=== PATIENT | female | born 1995 | race Hispanic/Latino ===

== ENCOUNTER 2016-11-01 13:07 | Emergency (ER) | payer OTHER ==
[~2016-11-01] VITALS: Ht 162.6 cm; Wt 53.5 kg
--- NOTE | 2016-11-01 14:53 | ED GI/GU/ABDOMINAL COMPLAINT ---
History of Present Illness General Chief Complaint: Female Urogenital Problems Stated Complaint: PELVIC PAIN 9 WEEKS Source: patient Exam Limitations: no limitations Vital Signs & Intake/Output Vital Signs & Intake/Output Vital Signs Date Time Temp Pulse Resp B/P Pulse O2 O2 Flow FiO2 Ox Delivery Rate 11/01 1810 97.2 72 17 115/68 96 Room Air 11/01 1544 99 Room Air 11/01 1324 97.6 79 18 109/73 95 Room Air ED Intake and Output 11/02 0000 11/01 1200 Intake Total 1000 Output Total Balance 1000 Intake, IV 1000 Patient 118 lb Weight Allergies Coded Allergies: No Known Allergies (11/01/16) Triage Note: C/O LOWER ABDOMINAL PAIN YESTERDAY, LASTING THROUGH NIGHT, PAIN BACK TODAY, DESCRIBED CRAMP-LIKE. ALSO C/O VOMITING SINCE YESTERDAY. DENIES VAGINAL BLEEDING. 9 WEEK . Triage Nurses Notes Reviewed? yes ? Y Is pt currently ? No HPI: 21-year-old female arrived to triage to room 2. Evaluation of lower abdominal pain that started last night. She reports she is 9 weeks confirmed by ultrasound through her SOFTWARE CONFIGURATION ENGINEER in [place]. She started with sharp stabbing pain super pubic area last night which continued through the night. She reports she could not sleep. She had some nausea and vomited 1. No diarrhea. No fever or chills. Last bowel movement was yesterday and the last time she ate was this morning. She denies any urinary symptoms. She is moving down to this area and would like an SOFTWARE CONFIGURATION ENGINEER. She reports she does not know if this is normal abdominal pain. She looks nontoxic, well-appearing and playing on her phone in the room. She reports this is her first . She denies any vaginal bleeding or discharge. (CHRIS PATEL APRN) Past History Travel History Traveled to [place] past 21 day No Medical History Any Pertinent Medical History? none Neurological: NONE EENT: NONE Cardiovascular: NONE Respiratory: NONE Gastrointestinal: NONE Hepatic: NONE Renal: NONE Musculoskeletal: NONE Psychiatric: NONE Endocrine: NONE Surgical History Surgical History: none Psychosocial History What is your primary language Mauritian Tobacco Use: Never used ETOH Use: denies use Family History Hx Contributory? No (CHRIS PATEL APRN) Review of Systems Review of Systems Constitutional: Reports: no symptoms. EENTM: Reports: no symptoms. Respiratory: Reports: no symptoms. Cardiovascular: Reports: no symptoms. GI: Reports: abdominal pain. Genitourinary: Reports: no symptoms. Musculoskeletal: Reports: no symptoms. Skin: Reports: no symptoms. Neurological/Psychological: Reports: no symptoms. Hematologic/Endocrine: Reports: no symptoms. Immunologic/Allergic: Reports: no symptoms. All Other Systems: Reviewed and Negative (CHRIS PATEL APRN) Physical Exam Physical Exam General Appearance: well developed/nourished, no apparent distress, alert, awake , comfortable Head: atraumatic, normal appearance Eyes: Bilateral: normal appearance, PERRL, EOMI. Ears, Nose, Throat, Mouth: hearing grossly normal, moist mucous membrane Neck: normal inspection, supple, full range of motion Respiratory: normal breath sounds, chest non-tender, no respiratory distress Cardiovascular: regular rate/rhythm Peripheral Pulses: 2+ radial (R), 2+ radial (L) Gastrointestinal: normal bowel sounds, soft, non-tender Back: normal inspection, normal range of motion Extremities: normal range of motion, evidence of injury Neurologic/Psych: no motor/sensory deficits, awake, alert, oriented x 3, normal gait, normal mood/affect Skin: intact, normal color, warm/dry Core Measures ACS in differential dx? No Severe Sepsis Present: No Septic Shock Present: No (CHRIS PATEL APRN) Progress Differential Diagnosis: ectopic , intrauterine , kidney stone, UTI/pyelo Plan of Care: Orders Procedure Date/time Status Add-on Test (ER Only) 11/01 1645 Active CULTURE,URINE 11/01 1519 Active URINALYSIS 11/01 1452 Complete HUMAN BETA HCG TITRE 11/01 1452 Complete COMPREHENSIVE METABOLIC PANEL 11/01 1452 Complete CBC WITHOUT DIFFERENTIAL 11/01 1452 Complete Laboratory Tests 11/01/16 1519: Urinalysis MANY H, Urine Color YEL, Urine Clarity HAZY H, Urine pH 8.5 H, Ur Specific [place] 1.020, Urine Protein NEG, Urine Ketones NEG, Urine Nitrite NEG, Urine Bilirubin NEG, Urine Urobilinogen 1.0, Ur Leukocyte Esterase SMALL H, Ur Microscopic SEDIMENT EXAMINED, Urine WBC RARE, Ur Epithelial Cells MANY H, Urine Bacteria MANY H, Urine Hemoglobin NEG, Urine Glucose NEG 11/01/16 1515: Anion Gap 7, Estimated GFR > 60, BUN/Creatinine Ratio 11.7, Glucose 92, Calcium 9.1, Total Bilirubin 0.8, AST 21, ALT 35, Alkaline Phosphatase 33, Total Protein 6.4, Albumin 3.5, Globulin 2.9, Albumin/Globulin Ratio 1.2, Beta HCG, Quant 375378.0, CBC w Diff NO MAN DIFF REQ, RBC 4.11 L, MCV 89.2, MCH 30.5, RDW 12.9, MPV 8.3, Gran % 48.7, Lymphocytes % 33.7, Monocytes % 14.1 H, Eosinophils % 3.2 , Basophils % 0.3, Absolute Granulocytes 2.0, Absolute Lymphocytes 1.4, Absolute Monocytes 0.6, Absolute Eosinophils 0.1, Absolute Basophils 0, PUBS MCHC 34.2 Microbiology 11/01 1519 URINE ROUT: Urine Culture - RECD Initial ED EKG: none Comments: PATIENT: CARO FLORENTINO PRESENT AGE: 21 PATIENT ACCOUNT NO: [id number] : 96 LOCATION: [facility] ORDERING PHYSICIAN: CHRIS PATEL APRN SERVICE DATE: 11/01/16 EXAM TYPE: US - US- VIABILITY EXAMINATION: Ultrasound of , less than 14 weeks. INDICATION: Lower abdominal pain. 9 weeks .. TECHNIQUE: Real-time ultrasound of was performed with a transabdominal and transvaginal transducer accessing grayscale appearance and color Doppler flow. COMPARISON: None FINDINGS: The LMP is 08/31/2016 corresponding to a gestational age of 8 weeks 6 days. The estimated gestational age by ultrasound is 9 weeks 5 days for an estimated delivery date of 06/07/2017. Multiple sonographic images of the pelvis demonstrates a single live intrauterine . heart rate of 156 beats per minute is detected. The cervix measures 2.5 cm. The left ovary is not visualized. The right ovary measures 4.0 x 2.3 x 2.2 cm and is morphologically unremarkable. Code Doppler interrogation of the right ovary demonstrates normal arterial and venous waveforms. anatomy is difficult to evaluate secondary to small size of the fetus. The crown-rump length is 2.64 cm ( 9 weeks 5 days). IMPRESSION: Single live intrauterine gestation. Mean age of 9 weeks and 5 days, with expected date of delivery 06/01/2017. The age by ultrasound is within one week of the expected due date based on the LMP. The left ovary is not visualized. The right ovary is within normal limits. Secondary to the early stage of , anatomy is difficult to evaluate and further measurements for a more comprehensive age estimate cannot be taken. DICTATED BY: DEMARCUS JAMISON MD DATE/TIME DICTATED:11/01/161738 SCIENCE TEACHER:NENO DATE/TIME TRANSCRIBED:11/01/161738 CONFIDENTIAL, DO NOT COPY WITHOUT APPROPRIATE AUTHORIZATION. <Electronically signed in Other Vendor System> SIGNED BY: DEMARCUS JAMISON MD 11/01/161751 6:24 PM explained blood work and ultrasound results to patient. She feels better at this time with no nausea vomiting and no abdominal pain. She will be discharged home to follow up with SOFTWARE CONFIGURATION ENGINEER in our area. Case discussed with Dr. Bruno. (CHRIS PATEL APRN) Departure Departure Time of Disposition: 1819 Disposition: HOME OR SELF CARE Condition: Stable Clinical Impression Primary Impression: at early stage Secondary Impressions: Abdominal pain Qualifiers: Abdominal location: lower abdomen, unspecified Qualified Code: R10.30 - Lower abdominal pain, unspecified Referrals: RUTHIE WELLER DO Additional Instructions: Please follow up with Dr. Weller this week. Return to the emergency department for any worsening or concerning symptoms including vaginal bleeding with abdominal pain. Departure Forms: Customer Survey General Discharge Information (CHRIS PATEL APRN) PA/ADJUNCT WRITING INSTRUCTOR Co-Sign Statement Statement: ED Attending supervision documentation- [X] I saw and evaluated the patient. I have also reviewed all the pertinent lab results and diagnostic results. I agree with the findings and the plan of care as documented in the PA's/ADJUNCT WRITING INSTRUCTOR's documentation. [X] I have reviewed the ED Record and agree with the PA's/ADJUNCT WRITING INSTRUCTOR's documentation. [] Additions or exceptions (if any) to the PAs/ADJUNCT WRITING INSTRUCTOR's note and plan are summarized below: [] (СЕРГЕЙ MOSELEY,JONATHAN)
[2016-11-01 15:39] LABS: ABSOLUTE BASOPHIL COUNT 0 /CUMM (0.0-0.2); ABSOLUTE EOSINOPHIL COUNT 0.1 /CUMM (0.0-0.7); ABSOLUTE LYMPH COUNT 1.4 /CUMM (1.2-3.4); ABSOLUTE MONOCYTE COUNT 0.6 /CUMM (0.10-0.60); BASOPHIL % 0.3 % (0.0-2.0); EOSINOPHIL % 3.2 % (0-5); GRANULOCYTE % 48.7 % (42.2-75.2); HEMATOCRIT 36.7 % (37-47); MEAN CORPUSCULAR HGB 30.5 PG (27.0-31.0); MEAN CORPUSCULAR HGB CONC 34.2 G/DL (33.0-37.0); MEAN CORPUSCULAR VOLUME 89.2 FL (81.0-99.0); MEAN PLATELET VOLUME 8.3 FL (7.4-10.4); PLATELET COUNT 216 /CUMM (130-400); RBC DISTRIBUTION WIDTH 12.9 % (11.5-14.5); RED BLOOD CELL CT 4.11 /CUMM (4.20-5.40); WHITE BLOOD CELL COUNT 4.1 /CUMM (4.8-10.8)
--- NOTE | 2016-11-01 17:52 | ULTRASOUND REPORT ---
EXAMINATION: Ultrasound of , less than 14 weeks. INDICATION: Lower abdominal pain. 9 weeks .. TECHNIQUE: Real-time ultrasound of was performed with a transabdominal and transvaginal transducer accessing grayscale appearance and color Doppler flow. COMPARISON: None FINDINGS: The LMP is 08/31/2016 corresponding to a gestational age of 8 weeks 6 days. The estimated gestational age by ultrasound is 9 weeks 5 days for an estimated delivery date of 06/07/2017. Multiple sonographic images of the pelvis demonstrates a single live intrauterine . heart rate of 156 beats per minute is detected. The cervix measures 2.5 cm. The left ovary is not visualized. The right ovary measures 4.0 x 2.3 x 2.2 cm and is morphologically unremarkable. Code Doppler interrogation of the right ovary demonstrates normal arterial and venous waveforms. anatomy is difficult to evaluate secondary to small size of the fetus. The crown-rump length is 2.64 cm ( 9 weeks 5 days). IMPRESSION: Single live intrauterine gestation. Mean age of 9 weeks and 5 days, with expected date of delivery 06/01/2017. The age by ultrasound is within one week of the expected due date based on the LMP. The left ovary is not visualized. The right ovary is within normal limits. Secondary to the early stage of , anatomy is difficult to evaluate and further measurements for a more comprehensive age estimate cannot be taken.
[2016-11-01 18:10] VITALS: BP 115/68
== END 2016-11-01 18:32 ==
LOC: ERH 13:07
PROVIDERS: Nurse Practitioner Family
DX: O26.91 Pregnancy related conditions, unspecified, first trimester (principal); R10.30 Lower abdominal pain, unspecified; Z3A.09 9 weeks gestation of pregnancy
CPT/HCPCS: 81001; 87086

== ENCOUNTER 2018-03-03 16:11 | Emergency (ER) | payer OTHER ==
[~2018-03-03] VITALS: Ht 162.6 cm; Wt 47.6 kg
[~2018-03-03 16:11] MED LIST: FERRALET 90 TA1 EACH PO; FERROUS SULFAT325 M3 PO; IBUPROFEN800 M1 PO; PERCOCET 5-3251 EACH PO; PRENATAL TABLE1 EAC2 PO; VITAFOL-ONE CA1 EACH PO
[2018-03-03 16:16] VITALS: BP 120/74
[2018-03-03] MEDS ORDERED: MAGIC MOUTH PO (16:21)
[2018-03-03] MEDS ORDERED: LIDO PO (16:21)
--- NOTE | 2018-03-03 16:22 | ED GENERAL ADULT ---
History of Present Illness General Chief Complaint: General Adult Stated Complaint: "BAD BLISTER IN MOUTH, FEEL LIKE MY FACE IS BURNIG Source: patient Exam Limitations: no limitations Vital Signs & Intake/Output Vital Signs & Intake/Output Vital Signs Date Time Temp Pulse Resp B/P B/P Pulse O2 O2 Flow FiO2 Mean Ox Delivery Rate 03/03 1618 100 Room Air 03/03 1616 98.1 90 18 120/74 100 Room Air Allergies Coded Allergies: No Known Allergies (11/01/16) Reconcile Medications Ferrous Sulfate 325 MG (65 MG IRON) TABLET 1 TAB PO BID anemia (Reported) Ibuprofen 800 MG TABLET 800 MG PO Q6P PRN UTERINE CRAMPING [magic mouth w/lido] ORAL.SUSP 1 DOSE PO 4XDP PRN mouth pain swish and swallow 4x a day as needed Oxycodone HCl/Acetaminophen (Percocet 5-325 MG Tablet) 5 MG-325 MG TABLET 1 TAB PO Q4P PRN PAIN SCALE 4-6 (MODERATE) Pnv#26/Iron Poly/FA/Dha (Vitafol-One Capsule) 29 MG IRON-1 MG-200 MG CAPSULE 1 CAP PO DAILY (Reported) Triage Note: PT STATES THAT SHE HAS HAD A SORE R LOWER INNER LIP SINCE THURSDAY Triage Nurses Notes Reviewed? yes Onset: Abrupt Duration: day(s): Timing: constant : No Patient currently breastfeeds: No HPI: 23 y/o otherwise healthy female presenting with painful sore to inner lower lip x3 days. No known trauma. Denies fevers or drainage. (Francisca Todd) Past History Travel History Traveled to [place] past 21 day No Medical History Any Pertinent Medical History? see below for history Neurological: NONE EENT: NONE Cardiovascular: NONE Respiratory: NONE Gastrointestinal: NONE Hepatic: NONE Renal: NONE Musculoskeletal: NONE Psychiatric: NONE Endocrine: NONE Surgical History Surgical History: none Psychosocial History What is your primary language Northern Irish Tobacco Use: Never used ETOH Use: denies use Illicit Drug Use: denies illicit drug use Family History Hx Contributory? No (Francisca Todd) Review of Systems Review of Systems Constitutional: Reports: no symptoms. EENTM: Reports: see HPI. Respiratory: Reports: no symptoms. Cardiovascular: Reports: no symptoms. GI: Reports: no symptoms. Genitourinary: Reports: no symptoms. Musculoskeletal: Reports: no symptoms. Skin: Reports: no symptoms. Neurological/Psychological: Reports: no symptoms. Hematologic/Endocrine: Reports: no symptoms. Immunologic/Allergic: Reports: no symptoms. All Other Systems: Reviewed and Negative (Francisca Todd) Physical Exam Physical Exam General Appearance: well developed/nourished, no apparent distress, alert, awake , comfortable Head: atraumatic, normal appearance Eyes: Bilateral: normal appearance. Ears, Nose, Throat: ulcer to right inner lower lip Neck: normal inspection Respiratory: normal breath sounds, lungs clear Cardiovascular: regular rate/rhythm Gastrointestinal: soft, non-tender Back: normal inspection Extremities: normal inspection Neurologic/Psych: awake, alert, oriented x 3, normal gait, normal mood/affect Skin: intact, normal color, warm/dry Core Measures ACS in differential dx? No CVA/TIA Diagnosis: No Sepsis Present: No Sepsis Focused Exam Completed? No (Francisca Todd) Progress Differential Diagnoses I considered the following diagnoses in my evaluation of the patient: [apthous ulcer vs herpes vesicle vs lip lac] Plan of Care: Exam consistent with apthous ulcer Given rx magic mouthwash for pain relief Given strict return precautions Initial ED EKG: none (Francisca Todd) Departure Departure Disposition: HOME OR SELF CARE Condition: Stable Clinical Impression Primary Impression: Aphthous ulcer of mouth Referrals: Patient Has No Primary Care Dr (PCP/Family) Additional Instructions: Use magic mouthwash as needed for pain. Swish and spit the medication 4 times a day before meals and before bed as needed for pain. Return to the emergency department for any new or worsening symptoms. Followup with a primary care provider to establish care and for re-evaluation. Departure Forms: Customer Survey General Discharge Information Prescriptions: Current Visit Scripts [magic mouth w/lido] 1 DOSE PO 4XDP PRN mouth pain #1 BOT swish and swallow 4x a day as needed (Francisca Todd) PA/SLEEVE BOTTOM FELLER Co-Sign Statement Statement: ED Attending supervision documentation- [] I saw and evaluated the patient. I have also reviewed all the pertinent lab results and diagnostic results. I agree with the findings and the plan of care as documented in the PA's/SLEEVE BOTTOM FELLER's documentation. [x] I have reviewed the ED Record and agree with the PA's/SLEEVE BOTTOM FELLER's documentation. [] Additions or exceptions (if any) to the PAs/SLEEVE BOTTOM FELLER's note and plan are summarized below: [] (Dwain Ocasio DO) Critical Care Note Critical Care Note Critical Care Time: non-applicable (Son YANG,Francisca)
== END 2018-03-03 16:27 ==
LOC: ERH 16:11
DX: K12.0 Recurrent oral aphthae (principal)

== ENCOUNTER 2018-04-09 10:19 | Emergency (ER) | payer OTHER ==
[~2018-04-09] VITALS: Ht 162.6 cm; Wt 50.3 kg
[~2018-04-09 10:19] MED LIST changes: +LIDO PO; +MAGIC MOUTH PO
[2018-04-09 12:10] LABS: ABSOLUTE BASOPHIL COUNT 0 /CUMM (0.0-0.2); ABSOLUTE EOSINOPHIL COUNT 0.1 /CUMM (0.0-0.7); ABSOLUTE GRANULOCYTE CT 1.8 /CUMM (1.4-6.5); ABSOLUTE LYMPH COUNT 1.3 /CUMM (1.2-3.4); ABSOLUTE MONOCYTE COUNT 0.3 /CUMM (0.10-0.60); BASOPHIL % 0.5 % (0.0-2.0); EOSINOPHIL % 2.8 % (0-5); HEMATOCRIT 43.3 % (37-47); MEAN CORPUSCULAR HGB 29.9 PG (27.0-31.0); MEAN CORPUSCULAR HGB CONC 34.5 G/DL (33.0-37.0); MEAN CORPUSCULAR VOLUME 86.5 FL (81.0-99.0); MEAN PLATELET VOLUME 8.7 FL (7.4-10.4); PLATELET COUNT 232 /CUMM (130-400); RBC DISTRIBUTION WIDTH 12.9 % (11.5-14.5); RED BLOOD CELL CT 5.01 /CUMM (4.20-5.40); WHITE BLOOD CELL COUNT 3.5 /CUMM (4.8-10.8)
[2018-04-09 12:11] LABS: GRANULOCYTE % 51.9 % (42.2-75.2)
--- NOTE | 2018-04-09 14:19 | ED GI/GU/ABDOMINAL COMPLAINT ---
History of Present Illness General Chief Complaint: Abdominal Pain/Flank Pain Stated Complaint: LOWER LT SIDED ABD PAIN Source: patient Exam Limitations: no limitations Vital Signs & Intake/Output Vital Signs & Intake/Output Vital Signs Date Time Temp Pulse Resp B/P B/P Pulse O2 O2 Flow FiO2 Mean Ox Delivery Rate 04/09 1733 76 123/84 04/09 1513 97.1 74 18 120/71 98 04/09 1353 Room Air 04/09 1032 98.7 66 18 112/70 98 Room Air Allergies Coded Allergies: No Known Allergies (11/01/16) Reconcile Medications Ferrous Sulfate 325 MG (65 MG IRON) TABLET 1 TAB PO BID anemia (Reported) Ibuprofen 800 MG TABLET 1 TAB PO TID pain Ibuprofen 800 MG TABLET 800 MG PO Q6P PRN UTERINE CRAMPING [magic mouth w/lido] ORAL.SUSP 1 DOSE PO 4XDP PRN mouth pain swish and swallow 4x a day as needed Oxycodone HCl/Acetaminophen (Percocet 5-325 MG Tablet) 5 MG-325 MG TABLET 1 TAB PO Q4P PRN PAIN SCALE 4-6 (MODERATE) Pnv#26/Iron Poly/FA/Dha (Vitafol-One Capsule) 29 MG IRON-1 MG-200 MG CAPSULE 1 CAP PO DAILY (Reported) Triage Note: 23 YO FEMALE TO TRIAGE FOR EVAL OF LLQ PAIN SINCE YESTERDAY, STATES PAIN IS CONSTANT AND STABBING IN NATURE. DENIES NVD. DENIES CHANCE OF , LMP 03/13/18. Triage Nurses Notes Reviewed? yes ? n Is pt currently ? No Onset: Abrupt Duration: day(s): Timing: recent history Location: left lower quadrant (pelvic) Radiation: no radiation Activities at Onset: none HPI: 23-year-old female comes into the emergency room for further evaluation of left lower pelvic pain. Symptoms been going on for days. Sharp. Some mild increased frequency with urination. Denies any fever chills vomiting. Denies any other associated symptoms. Comes in for further evaluation. (Babar YANG,Vinnie) Past History Travel History Traveled to [place] past 21 day No Medical History Any Pertinent Medical History? see below for history Neurological: NONE EENT: NONE Cardiovascular: NONE Respiratory: NONE Gastrointestinal: NONE Hepatic: NONE Renal: NONE Musculoskeletal: NONE Psychiatric: NONE Endocrine: NONE INSPECTOR RETURNED MATERIALS/Reproductive: OVARIAN CYST Surgical History Surgical History: none Psychosocial History What is your primary language Malay Tobacco Use: Never used Family History Hx Contributory? No (Vinnie Sullivan) Review of Systems Review of Systems Constitutional: Reports: no symptoms. EENTM: Reports: no symptoms. Respiratory: Reports: no symptoms. Cardiovascular: Reports: no symptoms. GI: Reports: see HPI. Genitourinary: Reports: see HPI. Musculoskeletal: Reports: no symptoms. Skin: Reports: no symptoms. Neurological/Psychological: Reports: no symptoms. Hematologic/Endocrine: Reports: no symptoms. Immunologic/Allergic: Reports: no symptoms. All Other Systems: Reviewed and Negative (Vinnie Sullivan) Physical Exam Physical Exam General Appearance: well developed/nourished, no apparent distress, alert, awake Head: atraumatic, normal appearance Eyes: Bilateral: normal appearance. Ears, Nose, Throat, Mouth: hearing grossly normal, moist mucous membrane Neck: normal inspection Respiratory: no respiratory distress Cardiovascular: regular rate/rhythm Gastrointestinal: soft, tenderness (left lower pelvic), No right lower quadrant tenderness, negative McBurney's point Back: normal inspection Extremities: normal range of motion Neurologic/Psych: awake, alert, oriented x 3 Skin: intact, normal color Core Measures ACS in differential dx? No Sepsis Present: No Sepsis Focused Exam Completed? No (Vinnie Sullivan) Progress Differential Diagnosis: intrauterine , kidney stone, ovarian cyst, ovarian torsion, UTI/pyelo Plan of Care: Orders Procedure Date/time Status URINE 04/09 1053 Complete URINALYSIS 04/09 1053 Complete COMPREHENSIVE METABOLIC PANEL 04/09 1053 Complete CBC WITHOUT DIFFERENTIAL 04/09 1053 Complete Laboratory Tests 04/09/18 1350: Urine Color YEL, Urine Clarity CLEAR, Urine pH 7.0, Ur Specific [place] 1.020, Urine Protein NEG, Urine Ketones NEG, Urine Nitrite NEG, Urine Bilirubin NEG, Urine Urobilinogen 1.0, Ur Leukocyte Esterase NEG, Ur Microscopic EXAM NOT REQUIRED, Urine Hemoglobin NEG, Urine Glucose NEG, Urine Test NEGATIVE 04/09/18 1201: Anion Gap 12, Estimated GFR > 60, BUN/Creatinine Ratio 16.3, Glucose 82, Calcium 9.7, Total Bilirubin 2.3 H, AST 30, ALT 43, Alkaline Phosphatase 53, Total Protein 7.8, Albumin 4.8, Globulin 3.0, Albumin/Globulin Ratio 1.6, CBC w Diff NO MAN DIFF REQ, RBC 5.01, MCV 86.5, MCH 29.9, MCHC 34.5, RDW 12.9, MPV 8.7, Gran % 51.9, Lymphocytes % 37.2, Monocytes % 7.6, Eosinophils % 2.8, Basophils % 0.5, Absolute Granulocytes 1.8, Absolute Lymphocytes 1.3, Absolute Monocytes 0.3 , Absolute Eosinophils 0.1, Absolute Basophils 0 Diagnostic Imaging: Viewed by Me: Ultrasound. Discussed w/RAD: Ultrasound. Radiology Impression: PATIENT: CARO FLORENTINO PRESENT AGE: 23 PATIENT ACCOUNT NO: [id number] : 96 LOCATION: [facility] ORDERING PHYSICIAN: Vinnie YANG SERVICE DATE: 04/09/18 EXAM TYPE: US - US -TRANSVAGINAL EXAMINATION: US TRANSVAGINAL CLINICAL INFORMATION: Left pelvic pain COMPARISON: None TECHNIQUE: Transabdominal and transvaginal imaging of the pelvic viscera was performed utilizing grayscale and color Doppler technique with spectral analysis FINDINGS: Uterus normal in size and configuration measuring 7.7 x 4.2 x 5.1 cm. Endometrial signature measures 0.6 cm. Cervical length 3.1 cm. Ovaries normal in size and appearance measuring 3.8 x 1.7 x 2.6 cm on the right and 4.4 x 2.2 x 2.4 cm on the left. There is a follicle measuring 1.8 cm within the left ovary. Normal arterial and venous waveforms present within both ovaries. Trace pelvic free fluid is normal in a female of reproductive age. IMPRESSION: 1. No evidence of ovarian torsion. 2. Physiologic follicles present bilaterally. 3. No suspicious adnexal cysts or masses. 4. Unremarkable exam. DICTATED BY: SHELDON MARTIN MD DATE/TIME DICTATED :04/09/181640 JUDICIAL LAW CLERK:NENO DATE/TIME TRANSCRIBED:04/09/181640 CONFIDENTIAL, DO NOT COPY WITHOUT APPROPRIATE AUTHORIZATION. < Electronically signed in Other Vendor System> SIGNED BY: SHELDON MARTIN MD 04/09/181645 Initial ED EKG: none (Babar YANG,Vinnie) Departure Departure Disposition: HOME OR SELF CARE Condition: Stable Clinical Impression Primary Impression: Abdominal pain Referrals: Patient Has No Primary Care Dr (PCP/Family) Additional Instructions: Follow-up with high school home economics teacher. Return if any concerns worsening symptoms. Take ibuprofen for pain. Please go over all results of today's visit with your primary care doctor. Contact your primary care doctor to let them know you were here in the emergency room. There may be nonspecific findings which may not be related to your visit today here in the emergency room but may require further evaluation and chronic monitoring by your primary care doctor. If you had a laceration today the chance of foreign body always remains. You should follow-up with your primary care doctor for recheck in 3-5 days for a wound check. If you had an x-ray done there is a chance that a fracture could have been missed on initial read and you should follow-up with your primary care doctor for repeat x-rays if symptoms persist. If your blood pressure was elevated here in the emergency room please have rechecked by [facility] primary care doctor within the next 48. If you were prescribed a narcotic here in the emergency room or any type of controlled substances you're not allowed to drive while taking this medication or operate any type of heavy machinery. Narcotics can make you feel lightheaded dizziness nausea and can cause constipation. You may need to continuous pickling line pickler helper a stool softener. Thank you for choosing [facility] emergency room. Please return to the emergency room immediately if you have any other concerns worsening of symptoms. Departure Forms: Customer Survey General Discharge Information Prescriptions: Current Visit Scripts Ibuprofen 1 TAB PO TID #30 TAB Comments 04/09/2018 6:01:33 PM Patient clinically looks well. Patient is no apparent distress. Nontoxic- appearing. No acute abdomen. Follow-up with MACHINE REPAIRER MAINTENANCE doctor. Return if any other concerns. (Vinnie Sullivan) PA/GUIDE Co-Sign Statement Statement: ED Attending supervision documentation- [] I saw and evaluated the patient. I have also reviewed all the pertinent lab results and diagnostic results. I agree with the findings and the plan of care as documented in the PA's/GUIDE's documentation. [x] I have reviewed the ED Record and agree with the PA's/GUIDE's documentation. [] Additions or exceptions (if any) to the PAs/GUIDE's note and plan are summarized below: [] (David MOSELEY,Cam)
--- NOTE | 2018-04-09 16:46 | ULTRASOUND REPORT ---
EXAMINATION: US TRANSVAGINAL CLINICAL INFORMATION: Left pelvic pain COMPARISON: None TECHNIQUE: Transabdominal and transvaginal imaging of the pelvic viscera was performed utilizing grayscale and color Doppler technique with spectral analysis FINDINGS: Uterus normal in size and configuration measuring 7.7 x 4.2 x 5.1 cm. Endometrial signature measures 0.6 cm. Cervical length 3.1 cm. Ovaries normal in size and appearance measuring 3.8 x 1.7 x 2.6 cm on the right and 4.4 x 2.2 x 2.4 cm on the left. There is a follicle measuring 1.8 cm within the left ovary. Normal arterial and venous waveforms present within both ovaries. Trace pelvic free fluid is normal in a female of reproductive age. IMPRESSION: 1. No evidence of ovarian torsion. 2. Physiologic follicles present bilaterally. 3. No suspicious adnexal cysts or masses. 4. Unremarkable exam.
[2018-04-09] MEDS ORDERED: IBUPROFEN800 M1 PO (17:23)
[2018-04-09 17:33] VITALS: BP 123/84
== END 2018-04-09 17:33 ==
LOC: ERH 10:19
PROVIDERS: Physician Assistant Medical
DX: R10.32 Left lower quadrant pain (principal)
CPT/HCPCS: 81003; 81025